=== PATIENT | male | born 1980 | race Caucasian/White ===

== ENCOUNTER 2022-01-05 15:41 | Outpatient (CLI) | payer BC ==
[2022-01-06 07:41] LABS: SARS-CoV-2 PCR by NAA Not Detected (NotDetected)
== END 2022-01-05 15:42 | disposition home or self-care (01) ==
LOC: CSHLAB 15:41
PROVIDERS: ATTEND Surgery
DX: Z20.822 Contact with and (suspected) exposure to COVID-19 (principal); K40.90 Unilateral inguinal hernia, without obstruction or gangrene, not specified as recurrent
CPT/HCPCS: U0003; U0005

== ENCOUNTER 2022-01-07 08:21 | Day surgery (SDC) | payer BC ==
[2022-01-06 10:10] VITALS: BMI 24.3
[~2022-01-07 08:21] MED LIST: Bupivacaine PF 0.5% 30 ML VIAL ONE; EPINEPHrine 1 MG/ML AMP ONE
[2022-01-07] MEDS ORDERED: SUGAMMADEX SODIUM 200 MG/2 ML VIAL ONE (11:48)
[2022-01-07] MEDS ORDERED: HYDROmorphone 0.5 MG/0.5 ML SYRINGE ONE (11:49)
[2022-01-07] MEDS ORDERED: ceFAZolin 2 GM/Dextrose 50 ML IVPB ONE (11:51)
[2022-01-07] MEDS ORDERED: PROPOFOL 20 ML ONE ×2 (11:54→12:44)
[2022-01-07] MEDS ORDERED: Fentanyl 100 MCG/2 ML VIAL ONE ×2 (11:54→12:51)
[2022-01-07] MEDS ORDERED: Lidocaine 2% PF 5 ML VIAL ONE (11:54)
[2022-01-07] MEDS ORDERED: Dexamethasone 20 MG/5 ML VIAL ONE (11:54)
[2022-01-07] MEDS ORDERED: Glycopyrrolate 0.2 MG/ML 5 ML SYRINGE ONE (11:54)
[2022-01-07] MEDS ORDERED: Ondansetron PF 4 MG/2 ML Vial ONE (11:54)
[2022-01-07] MEDS ORDERED: Rocuronium Bromide 10 MG/ML (10ML VIAL) ONE (11:54)
[2022-01-07] MEDS ORDERED: Midazolam HCl 2 mg/2 ml Vial ONE (11:54)
[2022-01-07] MEDS ORDERED: ePHEDrine Sulfate 50 MG/10 ML VIAL ONE (12:23)
[2022-01-07] MEDS ORDERED: HYDROcodone/Acetaminophen 5/325 mg Tablet PO PRN (13:27)
[2022-01-07] MEDS ORDERED: Acetaminophen 325 MG TAB PO PRN (13:27)
== END 2022-01-07 15:10 | disposition home or self-care (01) ==
LOC: CSHSDC 08:21
PROVIDERS: ATTEND Surgery
PROC: 0YU64JZ Supplement Left Inguinal Region with Synthetic Substitute, Percutaneous Endoscopic Approach (ICD-10-PCS; principal; 2022-01-07)
PROC: 8E0W4CZ Robotic Assisted Procedure of Trunk Region, Percutaneous Endoscopic Approach (ICD-10-PCS; principal; 2022-01-07)
DX: K40.90 Unilateral inguinal hernia, without obstruction or gangrene, not specified as recurrent (principal); J30.9 Allergic rhinitis, unspecified
CPT/HCPCS: C1713; J0171; J0690; J1100; J1170; J2001; J2250; J2405; J2704; J3010; S0020